=== PATIENT | male | born 1950 | race Caucasian/White ===

== ENCOUNTER 2016-09-27 10:06 | Emergency (ER) | payer MEDICARE, MEDICAID ==
[~2016-09-27] VITALS: Ht 190.5 cm; Wt 105.0 kg
[~2016-09-27 10:06] MED LIST: AMLO5TAB22 PO; LISI-363 PO; OXYC5 PO; TAMS0.4C67 PO
[2016-09-27 10:07] VITALS: BP 157/80; PULSE 70; RESP 16; TEMP 98.2; O2SAT 93
--- NOTE | 2016-09-27 10:53 | RADRPT ---
EXAM DATE/TIME: 09/27/2016 10:14 [facility] COMPARISON: CHEST SINGLE AP, February 16, 2016, 20:07. INDICATIONS : Chest pains for one day. MEDICAL HISTORY : Cirrhosis. SURGICAL HISTORY : Fusion, lumbar. ENCOUNTER: Initial ACUITY: 1 day PAIN SCORE: 7/10 LOCATION: Right lower side. FINDINGS: A single view of the chest demonstrates the lungs to be symmetrically aerated without evidence of mas s, infiltrate or effusion. The cardiomediastinal contours are unremarkable. Osseous structures are intact. CONCLUSION: No acute disease. Jeyson Mari MD FACR on September 27, 2016 at 10:51 Board Certified Radiologist. This report was verified electronically.
[2016-09-27 10:57] LABS: AUTOMATED NEUTROPHIL # 4.9 TH/MM3 (1.8-7.7); BASOPHIL % 0.6 % (0.0-2.0); EOSINOPHIL # 0.5 TH/MM3 (0-0.4); EOSINOPHIL % 7.2 % (0.0-4.0); HEMATOCRIT 43.8 % (39.0-51.0); LYMPH % 19.8 % (9.0-44.0); LYMPHOCYTE # 1.5 TH/MM3 (1.0-4.8); MEAN CELL VOLUME 96.4 FL (80.0-100.0); MEAN CORPUSCULAR HEMOGLOBIN 33.9 PG (27.0-34.0); MEAN CORPUSCULAR HGB CONC 35.2 % (32.0-36.0); MONO % 7.7 % (0.0-8.0); NEUT % 64.7 % (16.0-70.0); PLATELET COUNT 88 TH/MM3 (150-450); RED BLOOD COUNT 4.55 MIL/MM3 (4.50-5.90); RED CELL DISTRIBUTION WIDTH 13.5 % (11.6-17.2); WHITE BLOOD COUNT 7.6 TH/MM3 (4.0-11.0)
[2016-09-27 11:08] LABS: HEMO FLAGS AUTO DIFF
[2016-09-27 11:47] LABS: BLOOD UREA NITROGEN 12 MG/DL (7-18); GLOMERULAR FILTRATION RATE 113 ML/MIN (>89)
[2016-09-27 11:48] LABS: ALKALINE PHOSPHATASE 88 U/L (45-117); ALT (GPT) 24 U/L (12-78); AST (GOT) 26 U/L (15-37); TOTAL BILIRUBIN ADULT 2.9 MG/DL (0.2-1.0)
[2016-09-27 11:49] LABS: ANION GAP 7 MEQ/L (5-15); BICARBONATE 25.7 MEQ/L (21.0-32.0); CHLORIDE 104 MEQ/L (98-107); POTASSIUM 3.9 MEQ/L (3.5-5.1); SODIUM (NA) 137 MEQ/L (136-145)
[2016-09-27 11:54] LABS: CREATINE KINASE 69 U/L (39-308)
[2016-09-27 12:03] LABS: PLATELET ESTIMATE SMEAR LOW (NORMAL); PLATELET MORPHOLOGY NORMAL (NORMAL); SCAN/DIFF AUTO DIFF CONFIRMED
[2016-09-27] MEDS ORDERED: AMLO5TAB2 PO (12:35)
[2016-09-27] MEDS ORDERED: TAMS0.4C4 PO (12:35)
[2016-09-27] MEDS ORDERED: LISI40TA PO (12:35)
[2016-09-27] MEDS ORDERED: FURO1TAB60 PO (12:35)
[2016-09-27] MEDS ORDERED: SPIR50TA PO (12:35)
[2016-09-27] MEDS ORDERED: KLON2TAB PO (12:36)
[2016-09-27 12:38] VITALS: BP 181/85; PULSE 76; RESP 18; O2SAT 94
--- NOTE | 2016-09-27 12:44 | PD ---
HPI Chief Complaint: Fall Time Seen by Provider: 12:38 Travel History International Travel<30 days: No Contact w/Intl Traveler<30days: No Traveled to known affect area: No History of Present Illness HPI Patient comes in complaining of right-sided rib and abdominal pain status post mechanical fall 3 days ago. Patient was trying to catch his as she was about to fall causing him to fall hitting his right side on the coffee table. Denies hitting his head or loss of consciousness. Patient reports that she wanted to have him checked out previously, but the patient was refusing however his pain has become progressively worse. Patient's been taking an old prescription morphine for the pain last dose approximately 2 days ago. Patient states he does not have a allergy to morphine. Patient describes pain as a just hurts and is worse with certain movement and deep inspiration. Denies any chest pain, shortness of breath, nausea, vomiting, diarrhea, dark stool, loss or change in bowel or bladder, numbness or tingling anywhere, hitting his head, loss of consciousness, or being on any blood thinners. PFSH Past Medical History Arthritis: Yes Asthma: No Autoimmune Disease: No Blood Disorders: No Anxiety: Yes Depression: Yes Heart Rhythm Problems: No Cancer: No Cardiac Catheterization: No Cardiovascular Problems: No High Cholesterol: No Chemotherapy: No Chest Pain: No Congestive Heart Failure: No Cirrhosis: Yes COPD: No Cerebrovascular Accident: No Diabetes: No Diminished Hearing: No Endocrine: No Gastrointestinal Disorders: Yes (acid reflux) GERD: Yes Genitourinary: No Headaches: Yes Hiatal Hernia: No Hypertension: Yes Immune Disorder: No Kidney Stones: Yes Musculoskeletal: No Neurologic: Yes (seizure 1 time) Psychiatric: No Reproductive: No Respiratory: No Migraines: No Pancreatitis: Yes Radiation Therapy: No Renal Failure: Yes Seizures: Yes (ONCE WHEN WITHDRAWING FROM MORPHINE) Sleep Apnea: No Thyroid Disease: No Ulcer: Yes Past Surgical History Abdominal Surgery: Yes (APPENDECTOMY) Appendectomy: Yes Coronary Artery Bypass Graft: No Other Surgery: Yes (L4-5 FUSION) Social History Alcohol Use: Yes (3 shots Hand a day) Tobacco Use: No Substance Use: No Allergies-Medications (Allergen,Severity, Reaction): Coded Allergies: Ultram (Verified Allergy, Severe, Seizures, 09/27/16) Methadone (Verified Adverse Reaction, Mild, SOB, 09/27/16) Morphine (Verified Adverse Reaction, Mild, Itching, 09/27/16) *MDRO Multi-Drug Resistant Organism (Unverified Adverse Reaction, Unknown , 09/27/16) MRSA (buttock wound) - 08/2014 MRSA PCR Screen POSITIVE - 02/18/2016 Reported Meds & Prescriptions Reported Meds & Active Scripts Active Oxycodone (Oxycodone HCl) 5 Mg Tab 5 Mg PO Q8H PRN Reported Klonopin (Clonazepam) 2 Mg Tab 2 Mg PO TID Spironolactone 50 Mg Tab Unknown Dose PO DAILY Tamsulosin (Tamsulosin HCl) 0.4 Mg Cap 0.4 Mg PO HS Amlodipine (Amlodipine Besylate) 5 Mg Tab 5 Mg PO DAILY Lisinopril 40 Mg Tab 40 Mg PO DAILY Lasix (Furosemide) 40 Mg Tab 40 Mg PO DAILY Review of Systems Except as stated in HPI: all other systems reviewed are Neg Physical Exam Narrative GENERAL: Well-developed, overly nourished, in no acute distress, and non-ill appearing. SKIN: Warm and dry. Ecchymosis noted right CVA and left lower quadrant abdomen HEAD: Atraumatic. Normocephalic. EYES: Pupils equal and round. EOMI. No scleral icterus. No injection or drainage. ENT: No nasal bleeding or discharge. Mucous membranes pink and moist. NECK: Trachea midline. Supple. No nuclear rigidity. CARDIOVASCULAR: Regular rate and rhythm. No murmur appreciated. RESPIRATORY: No accessory muscle use. No respiratory distress. Clear to auscultation. Breath sounds equal bilaterally. There is ecchymosis noted right CVA. There is no crepitus or step-off noted. GASTROINTESTINAL: Abdomen soft, tenderness right upper and lower quadrant, Nondistended. Hepatic and splenic margins not palpable. Normal bowel sounds 4. No pulsatile mass. MUSCULOSKELETAL: No obvious deformities. No clubbing. No cyanosis. No edema. Full range of motion. NEUROLOGICAL: Awake and alert. No obvious cranial nerve deficits. Motor grossly within normal limits. Normal speech. PSYCHIATRIC: Appropriate mood and affect; insight and judgment normal. Data Data Last Documented VS Vital Signs Date Time Temp Pulse Resp B/P Pulse Ox O2 Delivery O2 Flow Rate FiO2 09/27/16 14:00 67 18 153/95 94 Room Air 09/27/16 12:41 2 09/27/16 10:07 98.2 Orders Electrocardiogram (09/27/16 10:12) Complete Blood Count With Diff (09/27/16 10:12) Ckmb (Isoenzyme) Profile (09/27/16 10:12) Troponin I (09/27/16 10:12) Chest, Single Ap (09/27/16 10:12) Iv Access Insert/Monitor (09/27/16 10:12) Ecg Monitoring (09/27/16 10:12) Oxygen Administration (09/27/16 10:12) Oximetry (09/27/16 10:12) Comprehensive Metabolic Panel (09/27/16 10:12) Ct Abd/Pel W Iv Contrast(Rout) (09/27/16 12:33) Ondansetron Inj (Zofran Inj) (09/27/16 12:45) Sodium Chloride 0.9% Flush (Ns Flush) (09/27/16 12:45) Prothrombin Time / Inr (Pt) (09/27/16 12:33) Act Partial Throm Time (Ptt) (09/27/16 12:33) Ribs, Uni (W/O Exp Cxr) (09/27/16 ) Morphine Inj (Morphine Inj) (09/27/16 12:45) Iohexol 350 Inj (Omnipaque 350 Inj) (09/27/16 14:02) Resp Incentive Spirometry (09/27/16 ) Labs Laboratory Tests Test 09/27/16 10:40 White Blood Count 7.6 TH/MM3 Red Blood Count 4.55 MIL/MM3 Hemoglobin 15.4 GM/DL Hematocrit 43.8 % Mean Corpuscular Volume 96.4 FL Mean Corpuscular Hemoglobin 33.9 PG Mean Corpuscular Hemoglobin 35.2 % Concent Red Cell Distribution Width 13.5 % Platelet Count 88 TH/MM3 Mean Platelet Volume 9.5 FL Neutrophils (%) (Auto) 64.7 % Lymphocytes (%) (Auto) 19.8 % Monocytes (%) (Auto) 7.7 % Eosinophils (%) (Auto) 7.2 % Basophils (%) (Auto) 0.6 % Neutrophils # (Auto) 4.9 TH/MM3 Lymphocytes # (Auto) 1.5 TH/MM3 Monocytes # (Auto) 0.6 TH/MM3 Eosinophils # (Auto) 0.5 TH/MM3 Basophils # (Auto) 0.0 TH/MM3 CBC Comment AUTO DIFF Differential Comment AUTO DIFF CONFIRMED Platelet Estimate LOW Platelet Morphology Comment NORMAL Sodium Level 137 MEQ/L Potassium Level 3.9 MEQ/L Chloride Level 104 MEQ/L Carbon Dioxide Level 25.7 MEQ/L Anion Gap 7 MEQ/L Blood Urea Nitrogen 12 MG/DL Creatinine 0.70 MG/DL Estimat Glomerular Filtration 113 ML/MIN Rate Random Glucose 103 MG/DL Calcium Level 8.9 MG/DL Total Bilirubin 2.9 MG/DL Aspartate Amino Transf 26 U/L (AST/SGOT) Alanine Aminotransferase 24 U/L (ALT/SGPT) Alkaline Phosphatase 88 U/L Total Creatine Kinase 69 U/L Troponin I LESS THAN 0.02 NG/ML Total Protein 7.1 GM/DL Albumin 3.1 GM/DL MDM Medical Decision Making Medical Screen Exam Complete: Yes Emergency Medical Condition: Yes Interpretation(s) EKG reviewed by Dr. Riddle, shows sinus rhythm with ventricular rate 74. No STEMI. Differential Diagnosis Fracture, contusion, liver laceration, splenic laceration, appendicitis, other Narrative Course The patient suffered a minor chest wall contusion. There is no clinical evidence to suggest intrathoracic injury nor cardiac injury at this time. The patient has no significant pain, shortness of breath or dyspnea. The patient moves air well without difficulty and is clear to auscultation. Heart sounds are audible without rubs, murmurs or gallops. There is no palpable crepitus. Pulses are symmetrical and strong. Chest/Rib Xray was normal without evidence of fracture, pneumothorax or hemothorax. The mediastinum appeared within normal limits. EKG and subsequent monitoring revealed no ectopy, st/t abnormalities, arrhythmias or abnormal intervals. Diagnosis was discussed with the patient. The patient is to return if develops any worsening pain difficulty breathing, or if coughs up blood or develops fever. The patient appears to have an abdominal wall contusion. There is no evidence to suggest intraabdominal injury nor visceral injury. CT examination with IV contrast showed no injury.There is no evidence of injury to the liver,spleen, intestinal injury, or genitourinary/renal/ retroperitoneal injury. There is also no evidence of underlying pelvic injury. Diagnosis was discussed with the patient who agreed with plan. The patient was given warnings to return if pain worsened or changed or developed any vomiting, blood in urine or progressive back pain. The patient was instructed to follow up with their primary physician. Patient in no obvious distress upon re-evaluation. All pertinent laboratory/ Radiology result(s) discussed with patient/family. Patient was asked if they wanted to speak to my attending, which the patient did not wish to do at this time. Discussed patient with Dr. Riddle, who is in agreement with plan of care and disposition. Any questions/concerns in reference to patient diagnosis/ condition discussed and clarified prior to patient's discharge. Reinforced sheer importance of close follow up with patient's primary physician or primary care clinic. Instructed patient to return to ED immediately, if symptoms return/ worsen. Pt showed understanding of above instructions. Further instructions and recommendations were detailed in discharge paperwork. Pt ambulated without difficulty out of ED at discharge. Diagnosis Primary Impression: Contusion of rib on right side Qualified Code: S20.211A - Contusion of rib on right side, initial encounter Additional Impression: Abdominal contusion Patient Instructions: Contusion in Adults (ED), General Instructions, Rib Contusion (ED) Additional Instructions: Follow-up with your primary care physician this week for reevaluation. Take all medication as prescribed. Use incentive spirometer 10 times per hour as directed. Return to the emergency department if symptoms get worse. Med/Other Pt SpecificInfo: Prescription(s) given Scripts Oxycodone 5 Mg Tab5 Mg PO Q8H PRN (PAIN) #7 TAB Ref 0 Prov:Merna Riddle MD 09/27/16 Disposition: 01 DISCHARGE HOME Condition: Stable Negro Roman Sep 27, 2016 12:44
[2016-09-27] MEDS ORDERED: MORPHINE SULFATE 4 MG/ML INJ IV PUSH ONE (12:45)
[2016-09-27] MEDS ORDERED: SODIUM CHLORIDE 0.9% FLUSH 5 ML FLUSH IVF PRN (12:45)
[2016-09-27] MEDS ORDERED: ONDANSETRON HCL 4 MG/2 ML VIAL IVP ONE (12:45)
--- NOTE | 2016-09-27 13:59 | RADRPT ---
EXAM DATE/TIME: 09/27/2016 13:28 [facility] COMPARISON: No previous studies available for comparison. INDICATIONS : Right side rib pain from fall. MEDICAL HISTORY : None. SURGICAL HISTORY : None. ENCOUNTER: Initial ACUITY: 1 day PAIN SCORE: 8/10 LOCATION: Right lower ribs FINDINGS: This expiratory chest reveals no evidence for pneumothorax. There is good visualization of the right ribs. There is no evidence for a rib fracture. CONCLUSION: Negative for rib fracture or pneumothorax. Jeyson Mari MD FACR on September 27, 2016 at 13:53 Board Certified Radiologist. This report was verified electronically.
[2016-09-27 14:00] VITALS: BP 153/95; PULSE 67; RESP 18; O2SAT 94
[2016-09-27] MEDS ORDERED: IOHEXOL 350 MG/ML 50 ML BTL (for RAD DIAG) IV ONE (14:02)
--- NOTE | 2016-09-27 14:39 | RADRPT ---
EXAM DATE/TIME: 09/27/2016 13:56 [facility] COMPARISON: CT ABDOMEN & PELVIS W CONTRAST, November 24, 2014, 6:31. INDICATIONS : Fall three days ago, right side chest and abdominal pain. IV CONTRAST: 91 cc Omnipaque 350 (iohexol) IV ORAL CONTRAST: No oral contrast ingested. RADIATION DOSE: 16.49 CTDIvol (mGy) MEDICAL HISTORY : Hypertension. Pancreatitis. Cirrhosis. Renal disease SURGICAL HISTORY : Appendectomy. ENCOUNTER: Initial ACUITY: 3 days PAIN SCALE: 5/10 LOCATION: Right abdominal pain TECHNIQUE: Volumetric scanning of the abdomen and pelvis was performed. Using automated exposure control and ad justment of the mA and/or kV according to patient size, radiation dose was kept as low as reasonably achievable to obtain optimal diagnostic quality images. FINDINGS: Lung bases are clear. The liver is somewhat small. Spleen is prominent. Pancreas, adrenals and kidn eys are unremarkable. There is symmetrical renal function. Review of bone windows reveals no evidence for a rib fracture, pneumothorax or hematoma. Pelvic contents are remarkable only for mild diverticula disease. CONCLUSION: 1. Negative for an acute traumatic injury. 2. Somewhat small nodular liver with a prominent spleen suggesting hepatocellular disease. Jeyson Mari MD FACR on September 27, 2016 at 14:17 Board Certified Radiologist. This report was verified electronically.
[2016-09-27] MEDS ORDERED: PERC5TAB12 PO (15:01)
[2016-09-27] MEDS ORDERED: OXYC-392 PO (15:03)
[2016-09-27 15:52] VITALS: RESP 18
--- NOTE | 2016-09-27 16:57 | EKG ---
Date Performed: 09/27/2016 Time Performed: 10:30:21 PTAGE: 66 years EKG: Sinus rhythm WITH OCCASIONAL VENTRICULAR PREMATURE COMPLEXES BORDERLINE ECG COMPARED TO PRIOR ELECTROCARDIOGRAM, PVCs are present. PREVIOUS TRACING : 02/16/2016 19.38 DOCTOR: Tato Kate Interpretating Date/Time 09/27/2016 16:55:31
== END 2016-09-27 22:35 | disposition home or self-care (01) ==
LOC: NEPC 10:06
DX: S30.1XXA Contusion of abdominal wall, initial encounter (principal); I10 Essential (primary) hypertension; K74.60 Unspecified cirrhosis of liver; S20.211A Contusion of right front wall of thorax, initial encounter; W18.09XA Striking against other object with subsequent fall, initial encounter; Y92.009 Unspecified place in unspecified non-institutional (private) residence as the place of occurrence of the external cause; Z88.5 Allergy status to narcotic agent
CPT/HCPCS: 71010; 71100; 74177; 80053; 82550; 84484; 85025; 93005; 96374; 96375; 99284; J2270; J2405; Q9967; 85610; 85730

== ENCOUNTER 2016-11-12 15:05 | Emergency (ER) | payer MEDICARE, MEDICAID ==
[~2016-11-12 15:05] MED LIST changes: +AMLO5TAB2 PO; -AMLO5TAB22 PO; +FURO1TAB60 PO; +KLON2TAB PO; -LISI-363 PO; +LISI40TA PO; +OXYC-392 PO; -OXYC5 PO; +SPIR50TA PO; +TAMS0.4C4 PO; -TAMS0.4C67 PO
[2016-11-12 15:08] VITALS: BP 144/93; PULSE 89; TEMP 97.9; O2SAT 94
== END 2016-11-12 16:00 | disposition left against medical advice (07) ==
LOC: NED 15:05
DX: R41.0 Disorientation, unspecified (principal); R55 Syncope and collapse; Z53.21 Procedure and treatment not carried out due to patient leaving prior to being seen by health care provider
CPT/HCPCS: 99281

== ENCOUNTER 2017-04-17 23:51 | Observation (INO) | payer MEDICARE, MEDICAID ==
[~2017-04-17] VITALS: Ht 190.5 cm; Wt 82.0 kg
[2017-04-17] MEDS ORDERED: IOHEXOL 350 MG/ML 10 ML VIAL (for RAD DIAG) IVCONTRAST ONE (23:52)
[2017-04-17 23:56] VITALS: BP 137/104; PULSE 125; RESP 22; TEMP 97.9; O2SAT 98
[2017-04-18] VITALS (13 sets, daily range): BP systolic 98–164; BP diastolic 57–90; PULSE 49–94; RESP 16–20; TEMP 98–98.7; O2SAT 93–99
[2017-04-18] MEDS ORDERED: NEUR300C PO (00:31)
[2017-04-18] MEDS ORDERED: ONDANSETRON HCL 4 MG/2 ML VIAL IV PUSH ONE (01:00)
[2017-04-18] MEDS ORDERED: LORazepam 2 MG/ML VIAL IV PUSH ONE (01:00)
[2017-04-18] MEDS ORDERED: ONDANSETRON HCL 4 MG/2 ML VIAL IVP ONE (01:00)
[2017-04-18] MEDS ORDERED: SODIUM CHLORIDE 0.9% FLUSH 10 ML FLUSH IV FLUSH PRN ×3 (01:00→04:00)
[2017-04-18] MEDS ORDERED: ASPIRIN 325 MG TAB PO ONE (01:00)
[2017-04-18 01:06] LABS: AUTOMATED NEUTROPHIL # 5.1 TH/MM3 (1.8-7.7); BASOPHIL % 0.4 % (0.0-2.0); EOSINOPHIL # 0.2 TH/MM3 (0-0.4); EOSINOPHIL % 2.5 % (0.0-4.0); HEMATOCRIT 48.2 % (39.0-51.0); HEMO FLAGS DIFF FINAL; LYMPH % 30.1 % (9.0-44.0); LYMPHOCYTE # 2.7 TH/MM3 (1.0-4.8); MEAN CELL VOLUME 96.7 FL (80.0-100.0); MEAN CORPUSCULAR HEMOGLOBIN 33.5 PG (27.0-34.0); MEAN CORPUSCULAR HGB CONC 34.6 % (32.0-36.0); MONO % 9.6 % (0.0-8.0); NEUT % 57.4 % (16.0-70.0); PLATELET COUNT 104 TH/MM3 (150-450); RED BLOOD COUNT 4.99 MIL/MM3 (4.50-5.90); WHITE BLOOD COUNT 8.9 TH/MM3 (4.0-11.0)
[2017-04-18 01:16] LABS: APTT (PATIENT) 28.9 SEC (24.3-30.1); INTERNATIONAL NORMALIZED RATIO 1.2 RATIO; PROTHROMBIN TIME - PATIENT 13.1 SEC (9.8-11.6)
[2017-04-18 01:25] LABS: ALKALINE PHOSPHATASE 112 U/L (45-117); TOTAL BILIRUBIN ADULT 5.4 MG/DL (0.2-1.0)
--- NOTE | 2017-04-18 01:28 | RADRPT ---
EXAM DATE/TIME: 04/18/2017 01:05 [facility] COMPARISON: CHEST SINGLE AP, September 27, 2016, 10:14. INDICATIONS : Chest pain. MEDICAL HISTORY : Hypertension. SURGICAL HISTORY : None. ENCOUNTER: Initial ACUITY: 1 day PAIN SCORE: 4/10 LOCATION: Left chest FINDINGS: Portable AP view of the chest demonstrates a normal-sized cardiac silhouette. No effusion, consolidat ion, or pneumothorax is visualized. The bones and soft tissues demonstrate no acute abnormality. CONCLUSION: No acute cardiopulmonary abnormalities identified. Jose Blue MD on April 18, 2017 at 1:26 Board Certified Radiologist. This report was verified electronically.
[2017-04-18 01:31] LABS: ALT (GPT) 61 U/L (12-78); ANION GAP 11 MEQ/L (5-15); AST (GOT) 66 U/L (15-37); BICARBONATE 23.1 MEQ/L (21.0-32.0); BLOOD UREA NITROGEN 8 MG/DL (7-18); CHLORIDE 104 MEQ/L (98-107); GLOMERULAR FILTRATION RATE 77 ML/MIN (>89); POTASSIUM 3.3 MEQ/L (3.5-5.1); SODIUM (NA) 138 MEQ/L (136-145)
--- NOTE | 2017-04-18 01:31 | RADRPT ---
EXAM DATE/TIME: 04/18/2017 01:09 [facility] COMPARISON: No previous studies available for comparison. INDICATIONS : Left shoulder pain. MEDICAL HISTORY : None. SURGICAL HISTORY : None. ENCOUNTER: Initial ACUITY: 1 day PAIN SCORE: 4/10 LOCATION: Left shoulder. FINDINGS: 2 views of the left shoulder demonstrate no fracture or dislocation. The acromioclavicular joint is i ntact with moderate osteoarthritis. There is mineralization along the coracoclavicular ligaments. No soft tissue abnormality is identified. The visualized portions of the left lung are clear and no displaced rib fracture is seen. CONCLUSION: No acute left shoulder abnormality is identified on this two-view examination. There is osteoarthriti s at the acromioclavicular joint. Jose Blue MD on April 18, 2017 at 1:29 Board Certified Radiologist. This report was verified electronically.
--- NOTE | 2017-04-18 01:40 | PD ---
HPI Chief Complaint: Chest Pain Time Seen by Provider: 00:40 Travel History International Travel<30 days: No Contact w/Intl Traveler<30days: No Traveled to known affect area: No History of Present Illness HPI 66yo M with PMH of severe anxiety, depression, GERD, HTN, chronic back pain, hemochromatosis, cirrhosis presents to the ED with multiple complaints today. Pt is complaining of lower chest pain that radiates from left to right. Chest pain is dull and intermittent. Associated with sob, nausea, diaphoresis. Pt also with abdominal pain for 4 days. It is generalized abdominal pain and constant and burning. Denies any fever, cough, vomiting, dysuria, hematuria, focal weakness or numbness. Pt has never had a heart attack. PFSH Past Medical History Arthritis: Yes Asthma: No Autoimmune Disease: No Blood Disorders: No Anxiety: Yes Depression: Yes Heart Rhythm Problems: No Cancer: No Cardiac Catheterization: No Cardiovascular Problems: No High Cholesterol: No Chemotherapy: No Chest Pain: No Congestive Heart Failure: No Cirrhosis: Yes COPD: No Cerebrovascular Accident: No Diabetes: No Diminished Hearing: Yes (grindstone) Endocrine: No Gastrointestinal Disorders: Yes (acid reflux) GERD: Yes Genitourinary: No Headaches: Yes Hiatal Hernia: No Hypertension: Yes Immune Disorder: No Implanted Vascular Access Dvce: No Kidney Stones: Yes Musculoskeletal: No Neurologic: Yes (seizure 1 time) Psychiatric: No Reproductive: No Respiratory: No Migraines: No Pancreatitis: Yes Radiation Therapy: No Renal Failure: Yes Seizures: Yes (ONCE WHEN WITHDRAWING FROM MORPHINE) Sleep Apnea: Yes (hx of) Thyroid Disease: No Ulcer: Yes Tetanus Vaccination: > 5 Years Influenza Vaccination: Yes Past Surgical History Abdominal Surgery: Yes (APPENDECTOMY) Appendectomy: Yes Coronary Artery Bypass Graft: No Other Surgery: Yes (L4-5 FUSION) Social History Alcohol Use: No Tobacco Use: No Substance Use: No Allergies-Medications (Allergen,Severity, Reaction): Coded Allergies: tramadol (Unverified Allergy, Severe, Seizures, 04/18/17) methadone (Unverified Adverse Reaction, Mild, SOB, 04/18/17) morphine (Unverified Adverse Reaction, Mild, Itching, 04/18/17) *MDRO Multi-Drug Resistant Organism (Unverified Adverse Reaction, Unknown , 04/18/17) MRSA (buttock wound) - 08/2014 MRSA PCR Screen POSITIVE - 02/18/2016 Reported Meds & Prescriptions Reported Meds & Active Scripts Active Oxycodone (Oxycodone HCl) 5 Mg Tab 5 Mg PO Q8H PRN Reported Neurontin (Gabapentin) 300 Mg Cap 300 Mg PO BID Klonopin (Clonazepam) 2 Mg Tab 2 Mg PO TID Spironolactone 50 Mg Tab Unknown Dose PO DAILY Tamsulosin (Tamsulosin HCl) 0.4 Mg Cap 0.4 Mg PO HS Amlodipine (Amlodipine Besylate) 5 Mg Tab 5 Mg PO DAILY Lisinopril 40 Mg Tab 40 Mg PO DAILY Lasix (Furosemide) 40 Mg Tab 40 Mg PO DAILY Review of Systems Except as stated in HPI: all other systems reviewed are Neg Physical Exam Narrative GENERAL: 66yo M in mild distress. SKIN: Focused skin assessment warm/dry. HEAD: Atraumatic. Normocephalic. EYES: Pupils equal and round. No scleral icterus. No injection or drainage. ENT: No nasal bleeding or discharge. Mucous membranes pink and moist. NECK: Trachea midline. No JVD. CARDIOVASCULAR: Regular rate and rhythm. No murmur appreciated. RESPIRATORY: No accessory muscle use. Clear to auscultation. Breath sounds equal bilaterally. GASTROINTESTINAL: Abdomen soft, +TTP epigastric, RUQ, RLQ. No rebound tenderness or guarding. MUSCULOSKELETAL: No obvious deformities. No clubbing. No cyanosis. No edema. NEUROLOGICAL: Awake and alert. No obvious cranial nerve deficits. Motor grossly within normal limits. Normal speech. PSYCHIATRIC: Very anxious appearing. Data Data Last Documented VS Vital Signs Date Time Temp Pulse Resp B/P (MAP) Pulse Ox O2 Delivery O2 Flow Rate FiO2 04/18/17 00:33 94 20 134/79 (97) 99 Room Air 04/17/17 23:56 97.9 Orders Orders Complete Blood Count With Diff (04/18/17 00:50) Comprehensive Metabolic Panel (04/18/17 00:50) Lipase (04/18/17 00:50) Prothrombin Time / Inr (Pt) (04/18/17 00:50) Act Partial Throm Time (Ptt) (04/18/17 00:50) Urinalysis - C+S If Indicated (04/18/17 00:50) Ct Abd/Pel W Iv Contrast(Rout) (04/18/17 00:50) Iv Access Insert/Monitor (04/18/17 00:50) Ecg Monitoring (04/18/17 00:50) Oximetry (04/18/17 00:50) Ondansetron Inj (Zofran Inj) (04/18/17 01:00) Sodium Chloride 0.9% Flush (Ns Flush) (04/18/17 01:00) Ondansetron Inj (Zofran Inj) (04/18/17 01:00) Troponin I (04/18/17 00:50) Chest, Single Ap (04/18/17 ) Shoulder, Limited(2vws) (04/18/17 ) Aspirin (Aspirin) (04/18/17 01:00) Lorazepam Inj (Ativan Inj) (04/18/17 01:00) Iohexol 350 Inj (Omnipaque 350 Inj) (04/17/17 23:52) Morphine Inj (Morphine Inj) (04/18/17 03:00) Admit Order (Ed Use Only) (04/18/17 02:58) Labs Laboratory Tests Test 04/18/17 00:55 White Blood Count 8.9 TH/MM3 Red Blood Count 4.99 MIL/MM3 Hemoglobin 16.7 GM/DL Hematocrit 48.2 % Mean Corpuscular Volume 96.7 FL Mean Corpuscular Hemoglobin 33.5 PG Mean Corpuscular Hemoglobin Concent 34.6 % Red Cell Distribution Width 13.0 % Platelet Count 104 TH/MM3 Mean Platelet Volume 9.5 FL Neutrophils (%) (Auto) 57.4 % Lymphocytes (%) (Auto) 30.1 % Monocytes (%) (Auto) 9.6 % Eosinophils (%) (Auto) 2.5 % Basophils (%) (Auto) 0.4 % Neutrophils # (Auto) 5.1 TH/MM3 Lymphocytes # (Auto) 2.7 TH/MM3 Monocytes # (Auto) 0.8 TH/MM3 Eosinophils # (Auto) 0.2 TH/MM3 Basophils # (Auto) 0.0 TH/MM3 CBC Comment DIFF FINAL Differential Comment Prothrombin Time 13.1 SEC Prothromb Time International Ratio 1.2 RATIO Activated Partial Thromboplast Time 28.9 SEC Blood Urea Nitrogen 8 MG/DL Creatinine 0.98 MG/DL Random Glucose 134 MG/DL Total Protein 7.5 GM/DL Albumin 3.7 GM/DL Calcium Level 9.0 MG/DL Alkaline Phosphatase 112 U/L Aspartate Amino Transf (AST/SGOT) 66 U/L Alanine Aminotransferase (ALT/SGPT) 61 U/L Total Bilirubin 5.4 MG/DL Sodium Level 138 MEQ/L Potassium Level 3.3 MEQ/L Chloride Level 104 MEQ/L Carbon Dioxide Level 23.1 MEQ/L Anion Gap 11 MEQ/L Estimat Glomerular Filtration Rate 77 ML/MIN Troponin I LESS THAN 0.02 NG/ML Lipase 112 U/L [facility] Medical Decision Making Medical Screen Exam Complete: Yes Emergency Medical Condition: Yes Interpretation(s) EKG: NSR 93bpm. Normal axis. Q waves III, V1, V2. Differential Diagnosis ACS vs. anxiety vs. pneumonia vs. colitis vs. pancreatitis Narrative Course 66yo M with PMH of HTN, hemochromatosis, cirrhosis here with multiple complaints. Pt has atypical chest pain that radiates from left to right chest. It is associated with nausea and diaphoresis. As per our record, last adenosine stress test was in 08/[address] segment changes. It has been a while since he had a stress test. Pt has history of anxiety and appeared anxious so ativan 1mg given as well as zofran. Labs reviewed, no leukocytosis. K: 3.3, replaced orally. CTa/p showed no acute abnormality within abdomen or pelvis. Cirrhosis which pt knows about. Total bilirubin is elevated at 5.4. AST is elevated at 66. Pt had been admitted for hyperbilirubinemia and transaminitis 02/16/16-02/18/16 and had EGD that showed small esophageal varices and gastritis. Colonoscopy that showed polyps. MRCP showed no obstruction but evidence of live cirrhosis. Pt was evaluated by GI Dr. Salcedo. Morphine ordered and pt is not allergic to morphine. States he puts that as his allergies because he was on pain management and was on too many pain medications. CXR negative. Xray left shoulder was ordered because he has been having left shoulder pain since falling 6 months ago. Xray left shoulder showed no acute shoulder abnormality. I initially placed admission for chest pain center but pt is still with abdominal pain and should be evaluated by GI given the elevated bilirubin so discussed with Dr. Tate and accepted to Dr. Napoles's service. Pt currently denies any chest pain but would r /o ACS with serial EKG and cardiac enzymes. Diagnosis Primary Impression: Hyperbilirubinemia Additional Impression: Abdominal pain Qualified Codes: R10.11 - Right upper quadrant pain Admitting Information Admitting Physician Requests: Yaneth Christianson DO Apr 18, 2017 01:40
--- NOTE | 2017-04-18 02:11 | RADRPT ---
EXAM DATE/TIME: 04/18/2017 01:58 [place] COMPARISON: CT ABDOMEN & PELVIS W CONTRAST, September 27, 2016, 13:56. INDICATIONS : Abdominal pain along with nausea. IV CONTRAST: 93 cc Omnipaque 350 (iohexol) IV ORAL CONTRAST: No oral contrast ingested. RADIATION DOSE: 15.63 CTDIvol (mGy) MEDICAL HISTORY : Seizures. Hypertension. Pancreatitis.renal disease SURGICAL HISTORY : Appendectomy. ENCOUNTER: Initial ACUITY: 4 - 6 days PAIN SCALE: 3/10 LOCATION: abdomen TECHNIQUE: Volumetric scanning of the abdomen and pelvis was performed. Using automated exposure control and ad justment of the mA and/or kV according to patient size, radiation dose was kept as low as reasonably achievable to obtain optimal diagnostic quality images. DICOM format image data is available electro nically for review and comparison. FINDINGS: There is respiratory motion artifact. LOWER LUNGS: The visualized lower lungs demonstrate no acute finding. Bilateral gynecomastia. LIVER: Liver has a nodular contour with central atrophy. No focal lesion is seen. There is no dilation of t he biliary tree. No calcified gallstones. SPLEEN: Mildly enlarged measuring 13.4 cm. PANCREAS: Within normal limits. KIDNEYS: Normal in size and shape. There is no mass hydronephrosis. 2 nonobstructing right renal stones are p resent measuring up to 4 mm. ADRENAL GLANDS: Within normal limits. VASCULAR: There is no aortic aneurysm. There is moderate atherosclerotic disease. There are paraesophageal vari melvin. BOWEL/MESENTERY: The stomach, small bowel, and colon demonstrate no acute abnormality. There is no free intraperitone al air or fluid. ABDOMINAL WALL: Within normal limits. RETROPERITONEUM: There is no lymphadenopathy. BLADDER: No wall thickening or mass. REPRODUCTIVE: Within normal limits. INGUINAL: There is no lymphadenopathy or hernia. MUSCULOSKELETAL: There are degenerative changes of the lumbar spine. CONCLUSION: 1. No acute abnormality is identified within the abdomen or pelvis. Examination quality degraded by r espiratory motion artifact. 2. Cirrhosis with findings indicative of portal hypertension including splenomegaly and paraesophagea l varices. The bilateral gynecomastia is also related to the chronic liver disease. 3. Nonacute findings include moderate atherosclerotic disease and 2 nonobstructing right renal stones . Jose Blue MD on April 18, 2017 at 2:05 Board Certified Radiologist. This report was verified electronically.
[2017-04-18] MEDS ORDERED: MORPHINE SULFATE 8 MG/ML INJ IV PUSH ONE (03:00)
[2017-04-18 03:59] LABS: BLOOD, URINE NEG (NEG); COMMENT (UR) CULT NOT INDICATED; CULTURE IF INDICATED CULT NOT INDICATED; GLUCOSE,URINE NEG (NEG); KETONE, URINE NEG (NEG); NITRITE,URINE NEG (NEG); URINE COLOR YELLOW (YELLW/STRAW)
[2017-04-18] MEDS ORDERED: BISACODYL 10 MG SUPP RECTAL PRN (04:00)
[2017-04-18] MEDS ORDERED: MAGNESIUM HYDROXIDE SUSP 30 ML CUP PO PRN ×2 (04:00)
[2017-04-18] MEDS ORDERED: LACTULOSE SYRUP 20 GM/30 ML CUP PO PRN (04:00)
[2017-04-18] MEDS ORDERED: SENNOSIDES 8.6 MG TAB PO PRN ×2 (04:00)
[2017-04-18] MEDS ORDERED: POTASSIUM CHLORIDE 20 MEQ CONTROLLED RELEASE TAB PO ONE (04:00)
[2017-04-18] MEDS ORDERED: NALOXONE HCL 0.4 MG/ML AMP IV PRN ×2 (04:00)
[2017-04-18] MEDS ORDERED: ONDANSETRON HCL 4 MG/2 ML VIAL IVP PRN (04:00)
[2017-04-18] MEDS ORDERED: PANTOPRAZOLE SOD 40 MG DELAYED RELEASE TAB PO SCH (05:00)
[2017-04-18] MEDS: clonazePAM 1 MG TAB PO PRN ×2 (06:01→15:41)
--- NOTE | 2017-04-18 06:24 | MH ---
cc: DARYN NAPOLES MD DATE OF ADMISSION: 04/18/2017 TIME OF VISIT: 03:45 CHIEF COMPLAINT Abdominal pain. HISTORY OF PRESENT ILLNESS This is a pleasant 66-year-old male who states he has been having abdominal pain for about four days, progressively worsening. It is mainly in the upper abdomen. He described it as a burning pain that has been on and off, however, over the past day or so it has become more constant, is very severe. He does have a little bit of chest discomfort as well which is a little different than the burning pain. It is in his lower chest, does not radiate, is described as a dull pain, lasts for 5-10 minutes and resolves on its own. He has had nausea and dry heaves, not actually vomiting. His appetite has been poor. He has not had fever or chills. He has had some loose stool; he took some Imodium and now his last bowel movement was very small amount yesterday. He has had very poor sleep because of the abdominal pain, not because of the chest pain. The pain was actually relieved a little bit by laying on his side and pushing a pillow to his abdomen. However, he has a bad back and he cannot stay in that position. His blood pressure was also noted to be very high, like 200/118 and his convinced him to come to the hospital and to have further workup because of this. MEDICATIONS ON ADMISSION Please see the chart. ALLERGIES The patient has had problems in the past with METHADONE. MORPHINE. TRAMADOL, being over-medicated. PAST MEDICAL HISTORY 1. Cirrhosis. 2. Gynecomastia. 3. Nonobstructing right renal stone. 4. GERD. 5. Hypertension. 6. Hemochromatosis. 7. One seizure while withdrawing from medication for narcotics. 8. Obstructive sleep apnea (not formally tested or being treated). 9. BPH. PAST SURGICAL HISTORY 1. Appendectomy. 2. L4-L5 fusion. 3. Bilateral upper extremity carpal tunnel surgery. SOCIAL HISTORY . Tobacco - none. Alcohol - none. FAMILY HISTORY Mother of lymphoma. She also had diabetes. Brother has diabetes. Son has hepatitis B and C. REVIEW OF SYSTEMS The patient has had some chronic issues with shortness of breath with exertion. They live on the third floor and sometimes with ambulating he get a little short of breath. He is trying to lose weight. He used to snore heavily but this seems to be better recently. He does not go for any kind of therapeutic phlebotomy at this time. He does not follow with a systems accountant. He has seen Dr. Leon's group and Dr. Oliva in the past because of the cirrhosis. He has had no recent sign of GI bleeding with black stool or blood in the vomit. The patient had an adenosine stress test done in 2013 which was reported to be normal but I am having trouble viewing it at this time. REVIEW OF SYSTEMS On 12-point, no other pertinent findings or specific changes over the last several months. He does have some chronic pain in his breasts with the gynecomastia; this has not changed recently. PHYSICAL EXAMINATION VITAL SIGNS: Last temperature was afebrile, heart rate 85, respirations 16, blood pressure 164/81. O2 sat was 99% on room air, now is reading 93%. GENERAL: This is a [id number] male resting comfortably in bed. His is at the bedside. He is in no respiratory distress at this time. HEENT: Sclerae with some jaundice. Mucous membranes are moist. NECK: Supple. CARDIOVASCULAR SYSTEM: Regular rate and rhythm. RESPIRATORY SYSTEM: Lungs are clear to auscultation bilaterally. CHEST: Bilateral gynecomastia is noted. GASTROINTESTINAL SYSTEM: Abdomen is obese. There is tenderness in the epigastric and the right upper quadrant. SYSTEM: No suprapubic tenderness. No CVA tenderness. MUSCULOSKELETAL SYSTEM: No edema. Florentino's is negative. Distal pulses are palpable. NEUROLOGICAL EXAMINATION: The patient is awake, alert and oriented. Speech is clear and fluent. Moving all of his extremities. INVESTIGATIONS Sodium 138, potassium 3.3, glucose 134, bilirubin 5.4, AST 66, ALT 61. Troponin I less than 0.02. Lipase is 112. INR is 1.2. White count is 8.9, hemoglobin 16.7, platelets 104. Urinalysis shows specific gravity of 1.038. Urobilinogen is at 8. Culture is not indicated. EKG Sinus rhythm with rate 93 beats/minute. T-waves in the inferior leads of indeterminate age. RADIOLOGY DATA Shoulder x-ray - No acute left shoulder abnormality. Chest x-ray negative. CT of the abdomen and pelvis shows no acute abnormality. Examination quality is degraded by respiratory motion. Cirrhosis with findings indicative of portal hypertension, splenomegaly and paraesophageal varices, bilateral gynecomastia, moderate atherosclerotic disease and two nonobstructing right renal stones. IMPRESSION 1. Abdominal pain. 2. Chest pain. 3. Cirrhosis. 4. Hemochromatosis. 5. Hypertension. 6. Hyperbilirubinemia. 7. Chronic back pain. 8. Acid reflux. DISCUSSION The patient is placed on observation to Dr. Napoles's service. The plan is to repeat serial cardiac enzymes x 3, repeat EKG. He has already received aspirin and we will attempt to rule him out for and acute myocardial infarction. His pain seems to be more related to his abdomen. We will start him on a proton pump inhibitor. We will consult his relief worker, monitor his labs. We will give him analgesics and antiemetics as needed. His potassium was noted to be slightly low; this will be replaced. Further recommendations will be made as his case progresses. Anticipated length of stay is less than 48 hours. Anticipated discharge is home. Dictated by: Ronal Milligan PA-C MD JOHN Reyes/MANDY /4:17 AM /5:57 AM
[2017-04-18] MEDS: MORPHINE SULFATE 8 MG/ML INJ IV PUSH PRN ×2 (07:00→17:59)
--- NOTE | 2017-04-18 07:56 | PD.CONS ---
HPI History of Present Illness This is a 66 year old male who came to the ER for evaluation of chest and abdominal pain. His symptoms about a week ago, but became more severe Sunday or Sunday. He is complaining of a constant burning pain that radiates to his RUQ and chest. He has tried TUMS, Zantac, Simethicone, Gingerale, honey, and green tea at home, but has not had any relief. He also has some associated dry heaving when he tries to eat, so he reports that he is only eating small amounts to try to get by. He does have heartburn and bloating. He has had a couple of loose stools, but denies any melena or hematochezia. He denies any weight loss (other than a few pounds intentionally). He denies any fever or chills. He has been taking 2 Advil a day for his abdominal pain, but states that he quit because he was afraid that it would aggravate his stomach even more. He does not drink any alcohol. He was diagnosed with liver cirrhosis in 2013. He also has a hemochromatosis, but states that he has never been on any treatment for this. He has a remote hx of PUD. He was evaluated about a year ago for similar symptoms and was evaluated with EGD (02/17/16)----> small esophageal varices in the middle third of the esophagus, there was erythematous gastritis in the gastric antrum; multiple biopsies were performed, normal duodenal mucosa in the bulb and second portion of the duodenum, retroflexion was performed and was normal. Pathology revealed reactive/chemical gastropathy in a background of mild chronic gastritis, negative for helicobacter pylori. He then had a colonoscopy (02/18/16) which revealed adenomatous polyps transverse/ sigmoid colon. (Jerri Arnold) PFSH Past Medical History Chronic back pain HTN GERD Arthritis Sciatica Anxiety/Depression Panic attacks Kidney stones Hx pancreatitis Sz secondary to withdrawal from Morphine PUD, remote hx Liver Cirrhosis Hemochromatosis Adenomatous polyps Gastritis Esophageal varices Past Surgical History Appendectomy L4-5 fusion Carpal tunnel release BUE Tumor removed from left middle finger (benign) EGD Colonoscopy (Jerri Arnold) Coded Allergies: tramadol (Unverified Allergy, Severe, Seizures, 04/18/17) methadone (Unverified Adverse Reaction, Mild, SOB, 04/18/17) morphine (Unverified Adverse Reaction, Mild, Itching, 04/18/17) Medications Allergies Coded Allergies Type Severity Reaction Last Updated Verified tramadol Allergy Severe Seizures 04/18/17 No methadone Adverse Reaction Mild SOB 04/18/17 No morphine Adverse Reaction Mild Itching 04/18/17 No *MDRO Multi-Drug Resistant Organism Adverse Reaction Unknown 04/18/17 No Active Scripts Medications Dose Route/Sig Max Daily Dose Days Date Category Neurontin (Gabapentin) 300 Mg Cap 300 Mg PO BID 04/18/17 Reported Oxycodone (Oxycodone HCl) 5 Mg Tab 5 Mg PO Q8H PRN 09/27/16 Rx Klonopin (Clonazepam) 2 Mg Tab 2 Mg PO TID 09/27/16 Reported Spironolactone 50 Mg Tab Unknown Dose PO DAILY 09/27/16 Reported Tamsulosin (Tamsulosin HCl) 0.4 Mg Cap 0.4 Mg PO HS 09/27/16 Reported Amlodipine (Amlodipine Besylate) 5 Mg Tab 5 Mg PO DAILY 09/27/16 Reported Lisinopril 40 Mg Tab 40 Mg PO DAILY 09/27/16 Reported Lasix (Furosemide) 40 Mg Tab 40 Mg PO DAILY 09/27/16 Reported Family History Mother from Lymphoma- had dm, enlarged heart Father at 52 from [place]. ? Tumor pressed against heart Social History No tobacco. No etoh No illicit drugs (Jerri Arnold) Review of Systems Constitutional: COMPLAINS OF: Change in appetite, DENIES: Fever, Weight loss, Chills Respiratory: DENIES: Cough, Shortness of breath Cardiovascular: COMPLAINS OF: Chest pain Gastrointestinal: COMPLAINS OF: Abdominal pain, Diarrhea, Nausea, Vomiting, Swelling of Abdomen, Heartburn, DENIES: Black stools, Bloody stools, Constipation, Hematemesis Integumentary: DENIES: Abnormal pigmentation Hematologic/lymphatic: DENIES: Bruising Neurologic: DENIES: Headache Psychiatric: DENIES: Confusion (Jerri Arnold) GI Exam Vitals I&O Vital Signs Date Time Temp Pulse Resp B/P (MAP) Pulse Ox O2 Delivery O2 Flow Rate FiO2 04/18/17 07:25 65 04/18/17 07:05 16 04/18/17 04:52 98.1 65 18 162/90 (114) 97 04/18/17 04:35 04/18/17 03:58 93 04/18/17 03:27 85 16 164/81 (108) 93 Room Air 04/18/17 00:33 94 20 134/79 (97) 99 Room Air 04/17/17 23:56 97.9 125 22 137/104 (115) 98 Room Air I/O 04/17/17 04/17/17 04/17/17 04/18/17 04/18/17 04/18/17 07:00 15:00 23:00 07:00 15:00 23:00 Intake Total 0 ml Balance 0 ml Intake Oral 0 ml IV Total 0 ml # Voids 0 Imaging Allergies Coded Allergies Type Severity Reaction Last Updated Verified tramadol Allergy Severe Seizures 04/18/17 No methadone Adverse Reaction Mild SOB 04/18/17 No morphine Adverse Reaction Mild Itching 04/18/17 No *MDRO Multi-Drug Resistant Organism Adverse Reaction Unknown 04/18/17 No Active Scripts Medications Dose Route/Sig Max Daily Dose Days Date Category Neurontin (Gabapentin) 300 Mg Cap 300 Mg PO BID 04/18/17 Reported Oxycodone (Oxycodone HCl) 5 Mg Tab 5 Mg PO Q8H PRN 09/27/16 Rx Klonopin (Clonazepam) 2 Mg Tab 2 Mg PO TID 09/27/16 Reported Spironolactone 50 Mg Tab Unknown Dose PO DAILY 09/27/16 Reported Tamsulosin (Tamsulosin HCl) 0.4 Mg Cap 0.4 Mg PO HS 09/27/16 Reported Amlodipine (Amlodipine Besylate) 5 Mg Tab 5 Mg PO DAILY 09/27/16 Reported Lisinopril 40 Mg Tab 40 Mg PO DAILY 09/27/16 Reported Lasix (Furosemide) 40 Mg Tab 40 Mg PO DAILY 09/27/16 Reported Laboratory Test 04/18/17 00:55 04/18/17 03:00 04/18/17 04:10 White Blood Count 8.9 TH/MM3 Red Blood Count 4.99 MIL/MM3 Hemoglobin 16.7 GM/DL Hematocrit 48.2 % Mean Corpuscular Volume 96.7 FL Mean Corpuscular Hemoglobin 33.5 PG Mean Corpuscular Hemoglobin Concent 34.6 % Red Cell Distribution Width 13.0 % Platelet Count 104 TH/MM3 Mean Platelet Volume 9.5 FL Neutrophils (%) (Auto) 57.4 % Lymphocytes (%) (Auto) 30.1 % Monocytes (%) (Auto) 9.6 % Eosinophils (%) (Auto) 2.5 % Basophils (%) (Auto) 0.4 % Neutrophils # (Auto) 5.1 TH/MM3 Lymphocytes # (Auto) 2.7 TH/MM3 Monocytes # (Auto) 0.8 TH/MM3 Eosinophils # (Auto) 0.2 TH/MM3 Basophils # (Auto) 0.0 TH/MM3 CBC Comment DIFF FINAL Differential Comment Prothrombin Time 13.1 SEC Prothromb Time International Ratio 1.2 RATIO Activated Partial Thromboplast Time 28.9 SEC Blood Urea Nitrogen 8 MG/DL Creatinine 0.98 MG/DL Random Glucose 134 MG/DL Total Protein 7.5 GM/DL Albumin 3.7 GM/DL Calcium Level 9.0 MG/DL Alkaline Phosphatase 112 U/L Aspartate Amino Transf (AST/SGOT) 66 U/L Alanine Aminotransferase (ALT/SGPT) 61 U/L Total Bilirubin 5.4 MG/DL Sodium Level 138 MEQ/L Potassium Level 3.3 MEQ/L Chloride Level 104 MEQ/L Carbon Dioxide Level 23.1 MEQ/L Anion Gap 11 MEQ/L Estimat Glomerular Filtration Rate 77 ML/MIN Troponin I LESS THAN 0.02 NG/ML LESS THAN 0.02 NG/ML Lipase 112 U/L Urine Color YELLOW Urine Turbidity CLEAR Urine pH 7.0 Urine Specific [place] 1.038 Urine Protein TRACE mg/dL Urine Glucose (UA) NEG mg/dL Urine Ketones NEG mg/dL Urine Occult Blood NEG Urine Nitrite NEG Urine Bilirubin NEG Urine Urobilinogen 8.0 MG/DL Urine Leukocyte Esterase NEG Urine RBC 1 /hpf Urine WBC 1 /hpf Microscopic Urinalysis Comment CULT NOT INDICATED Physical Examination HEENT: Normocephalic; atraumatic; no jaundice. CHEST: CTA CARDIAC: RRR ABDOMEN: Soft, nondistended, mild epigastric tenderness; no hepatosplenomegaly ; bowel sounds are present in all four quadrants. EXTREMITIES: No clubbing, cyanosis, or edema. SKIN: Ecchymotic areas COMPUTER APPLICATIONS INSTRUCTOR: No focal deficits; alert and oriented times three. (Jerri Arnold) Assessment and Plan Plan ASSESSMENT: - Abdominal pain, N/V. 4-5 day history of burning epigastric pain radiating to chest/RUQ with associated heartburn, bloating, dry heaving. Hospitalized for the same last year, S/P EGD (02/17/16)----> small esophageal varices in the middle third of the esophagus, there was erythematous gastritis in the gastric antrum; multiple biopsies were performed, normal duodenal mucosa in the bulb and second portion of the duodenum, retroflexion was performed and was normal. Pathology revealed reactive/chemical gastropathy in a background of mild chronic gastritis, negative for helicobacter pylori. He then had a colonoscopy (02/18/16) which revealed adenomatous polyps transverse/sigmoid colon. CT Scan abdomen and pelvis (04/18/17)----> No acute abnormality is identified within the abdomen or pelvis. Examination quality degraded by respiratory motion artifact. Cirrhosis with findings indicative of portal hypertension including splenomegaly and paraesophageal varices. The bilateral gynecomastia is also related to chronic liver disease. Nonacute findings include moderate atherosclerotic disease and 2 nonobstructing right renal stones. HH Stable. LFT elevated with T. Bili 3.7, AST 105, ALK 73, ALk Phosph 143. PPI. Will plan for EGD this afternoon if third set of troponin/EKG unremarkable. Change Protonix to 40mg iv bid, add carafate, add simethicone. Add lipase to today's labs. - Elevated LFTs with liver cirrhosis with hx of hemochromatosis. Dx 2013. Denies ever having treatment for hemochromatosis. CT as above. Does not drink ETOH. T. Bili 3.7, AST 105, ALT 73, ALk Phosph 143. - Esophageal varices. No active GI bleeding. - Hx hemochromatosis. Will get Iron studies. - Chest pain, seems to be more GI related- epigastric burning radiating to RUQ and chest- no sob/difficulty breathing. Trop negative x 2, due for 3rd set. Per attending. - GERD. PPI - HTN, Anxiety/Depression, Chronic back pain per attending. PLAN: - Plan for egd this afternoon if 3rd set of trop/EKG unremarkable - Obtain consents - NPO - Add lipase to today's labs - CBC, CMP in am - Iron studies - Change Protonix to Protonix 40mg IV BID - Add Carafate - Add Simethicone - Supportive care - Further recommendations to follow based on results of above - PT seen and examined by Dr. Oliva and myself and this note is written on his behalf (Jerri Arnold) Physician Comments Seen and examined,plan for EGD today after clearance from cardiac point of view , will follow up with you. (Marjorie Oliva MD) Jerri Arnold Apr 18, 2017 07:56 Marjorie Oliva MD Apr 18, 2017 09:10
[2017-04-18] MEDS: SODIUM CHLORIDE 0.9% FLUSH 10 ML FLUSH IV FLUSH SCH ×2 (08:58→21:50)
[2017-04-18] MEDS: HEPARIN SODIUM - SQ 10,000 UNITS/ML VIAL SQ SCH ×2 (08:59→21:47)
[2017-04-18] MEDS: ASPIRIN 325 MG TAB PO SCH (08:59)
[2017-04-18] MEDS ORDERED: SODIUM CHLORIDE 0.9% FLUSH 10 ML FLUSH IV FLUSH SCH (09:00)
[2017-04-18] MEDS: PANTOPRAZOLE SODIUM 40 MG VIAL IV PUSH SCH ×2 (09:15→21:47)
[2017-04-18 10:33] LABS: TRANSFERRIN IRON PROFILE 211 MG/DL (200-360)
[2017-04-18 10:35] LABS: FERRITIN 349 NG/ML (26-388)
[2017-04-18] MEDS: SUCRALFATE 1 GM/10 ML CUP PO SCH ×3 (11:00→21:47)
--- NOTE | 2017-04-18 11:55 | GIPROC ---
[facility] [address] [facility]. [facility], [id number] EGD PROCEDURE REPORT EXAM DATE: 04/18/2017 PATIENT NAME: Veto Sanon MR #: [id number] BIRTHDATE: 1950 ATTENDING: Marjorie Oliva MD ORDER #: [id number] INFORMATION SYSTEMS AUDITOR: Kaye Butcher and Aleyda Guillen STATUS: inpatient INDICATIONS: The patient is a 66 yr old male here for an EGD due to epigastric abdominal pain and abdominal pain in the right upper quadrant PROCEDURE PERFORMED: EGD w/ biopsy MEDICATIONS: None and Per Anesthesia. TOPICAL ANESTHETIC: none CONSENT: The patient understands the risks and benefits of the procedure and understands that these risks include, but are not limited to: sedation, allergic reaction, infection, perforation and/or bleeding. Alternative means of evaluation and treatment include, among others: physical exam, x-rays, and/or surgical intervention. The patient elects to proceed with this endoscopic procedure. medical equipment was checked for proper function. Hand hygiene and appropriate measures for infection prevention was taken. After the risks, benefits and alternatives of the procedure were thoroughly explained, Informed consent was verified, confirmed and timeout was successfully executed by the treatment team. The patient was anesthetized with topical anesthesia and the Pentax [id number] endoscope was introduced through the mouth and advanced to the second portion of the duodenum. Retroflexed views revealed an ulcer The gastroscope was then slowly withdrawn and removed. ESOPHAGUS: The esophagus was otherwise normal. STOMACH: Multiple small non-bleeding, round and clean-based ulcers were found in the entire examined stomach. Biopsies were taken at edge of the ulcers and at the center of the ulcers. DUODENUM: Multiple medium sized non-bleeding, shallow and clean-based ulcers were found in the 2nd part of the duodenum. Biopsies were taken at edge of the ulcers and at the center of the ulcers. ADVERSE EVENTS: There were no complications. IMPRESSIONS: 1. The esophagus was otherwise normal 2. Multiple small ulcers were found in the entire examined stomach; biopsies were taken 3. Multiple medium sized ulcers were found in the 2nd part of the duodenum; biopsies were taken 4. Retroflexed views revealed an ulcers RECOMMENDATIONS: 1. Continue PPI 2. Await biopsy results. Biopsy results will not be ready for 7-10 days. If you don't hear from us in two weeks, call our office for biopsy results. 3. Check Gastrin Level 4. Avoid NSAID's PATIENT CONDITION: stable DISPOSITION: Observation REPEAT EXAM: NONE Marjorie Oliva MD eSigned: Marjorie Oliva MD 04/18/2017 11:54 AM cc: PATIENT NAME: Veto Sanon MR#: [id number]
[2017-04-18] MEDS ORDERED: PROPOFOL 200 MG/20 ML AMP IV ONE (12:00)
[2017-04-18] MEDS: SIMETHICONE 125 MG CHEWABLE TAB PO SCH ×2 (14:09→21:47)
[2017-04-18] MEDS: MORPHINE SULFATE 4 MG/ML INJ IV PRN ×2 (14:10→21:48)
--- NOTE | 2017-04-18 17:26 | EKG ---
Date Performed: 04/18/2017 Time Performed: 07:10:24 PTAGE: 66 years EKG: Probable Sinus rhythm Significant baseline artifact precluding further interpretation Consider repeat EKGS ABNORMAL ECG PREVIOUS TRACING : 04/18/2017 00.30 DOCTOR: Glenys Mas Interpretating Date/Time 04/18/2017 17:25:17
--- NOTE | 2017-04-18 17:26 | EKG ---
Date Performed: 04/18/2017 Time Performed: 00:30:55 PTAGE: 66 years EKG: Sinus rhythm POSSIBLE INFERIOR MYOCARDIAL INFARCTION Compared to prior tracing no significant change ABNORMAL ECG PREVIOUS TRACING : 09/27/2016 10.30 DOCTOR: Glenys Mas Interpretating Date/Time 04/18/2017 17:24:29
[2017-04-19] VITALS (8 sets, daily range): BP systolic 107–140; BP diastolic 66; PULSE 47–70; RESP 16–18; TEMP 98–98.5; O2SAT 93–100
[2017-04-19] MEDS: clonazePAM 1 MG TAB PO PRN ×2 (01:33→11:25)
[2017-04-19] MEDS: SUCRALFATE 1 GM/10 ML CUP PO SCH ×2 (06:06→11:17)
[2017-04-19] MEDS: SIMETHICONE 125 MG CHEWABLE TAB PO SCH (06:06)
[2017-04-19] MEDS: MORPHINE SULFATE 4 MG/ML INJ IV PRN (06:11)
[2017-04-19 08:30] LABS: HEMATOCRIT 44.3 % (39.0-51.0); MEAN CELL VOLUME 102.1 FL (80.0-100.0); MEAN CORPUSCULAR HGB CONC 33.4 % (32.0-36.0); PLATELET COUNT 99 TH/MM3 (150-450); RED BLOOD COUNT 4.34 MIL/MM3 (4.50-5.90); RED CELL DISTRIBUTION WIDTH 13.6 % (11.6-17.2)
[2017-04-19] MEDS ORDERED: SUCR1S PO (08:31)
--- NOTE | 2017-04-19 08:31 | HHI.DCPOC ---
Discharge Care Plan Diagnosis: (1) GERD (gastroesophageal reflux disease) Your Health Problems Are: Chest Pain Goals to Promote Your Health * To prevent worsening of your condition and complications * To maintain your health at the optimal level Directions to Meet Your Goals Take your medications as prescribed Follow your dietary instruction Follow activity as directed Keep your appointments as scheduled Take your immunizations and boosters as scheduled If your symptoms worsen call your PCP, if no PCP go to Urgent Care Center or Emergency Room Smoking is Dangerous to Your Health. Avoid second hand smoke Call the 24-hour hour crisis hotline for domestic abuse at [facility]. RIKY Apr 19, 2017 08:31
[2017-04-19 08:36] LABS: HEMO FLAGS AUTO DIFF
--- NOTE | 2017-04-19 08:38 | HHI.PR ---
Subjective Subjective Remarks minimal epigastric pain tolerating diet well no n/v no diarrhea no cp no sob no fever at bsd Review of Systems Constitutional Constitutional Remarks 12 point ros completed, negative except as noted above Vitals/Results Vital Signs Vital Signs Date Time Temp Pulse Resp B/P (MAP) Pulse Ox O2 Delivery O2 Flow Rate FiO2 04/19/17 08:08 98.0 58 16 140/66 (90) 100 04/19/17 07:38 97 Nasal Cannula 2.00 04/19/17 06:16 12 04/19/17 04:04 47 04/19/17 00:29 97 21 04/19/17 00:04 70 04/18/17 23:53 98.1 56 18 129/62 (84) 98 04/18/17 20:43 98.4 70 19 130/70 (90) 98 04/18/17 20:01 49 04/18/17 15:58 98.7 66 20 131/60 (83) 98 04/18/17 14:05 71 100/66 (77) 04/18/17 13:03 98.0 62 20 98/57 (71) 98 04/18/17 12:15 65 20 109/67 (81) 95 04/18/17 12:00 98.8 71 20 113/69 (84) 98 04/18/17 08:40 95 21 CBC/BMP: 04/18/17 0055 04/18/17 0055 Lab Results Laboratory Tests Test 04/18/17 14:09 04/19/17 08:00 Troponin I LESS THAN 0.02 NG/ML Gastrin 169 pg/mL Physical Exam General General Appearance: Well Developed, Well Nourished, No Acute Distress, Comfortable Eyes Eye Exam: Pupils Equal, Pupils Reactive Ears & Nose Ears & Nose Exam: Nasal Mucosa [place] Throat Throat Exam: Oral Mucosa [place] & Moist Neck Neck Exam: Neck Supple, Trachea Midline Pulmonary Resp Exam: Clear Bilaterally, No Distress Cardiology CV Exam: Regular, Good Perfusion Gastrointestinal/Abdomen GI Exam: Soft, Non-Tender, Bowel Sounds Present, Non-Distended Musculoskeletal MS Exam: Joints Intact Integumentary Skin Exam: Warm, Dry Extremeties Extremities Exam: No Edema, Pedal Pulses Palpable Neurologic Neuro Exam: Alert, Awake, Oriented, Speech Clear, Moving All Extremities, No Focal Deficits Psychiatric Psych Exam: Appropriate Responses VTE Prophylaxis VTE Prophylaxis Device: SCDs PUD Prophylasis PUD Prophylaxis: Protonix Assessment/Plan Assessment/Plan IMPRESSION 1. Abdominal pain. 2. Chest pain. 3. Cirrhosis. 4. Hemochromatosis. 5. Hypertension. 6. Hyperbilirubinemia. 7. Chronic back pain. 8. Acid reflux. PLAN: ruled out [place] source of pain likely gastric ulcers appreciate GI input S/P EGD 04/18-gastric and duodenal ulcers gastrin level elevated continue PPI and Carafate continue home meds pain management SCDS for dvt prophylaxis PPI for GI prophylaxis tolerating diet well no n/v plan to dc home today after GI clears f/u GI 2 weeks Diet-heart healthy avoid NSAIDS Activity as tolerated d/w RN d/w Dr. Napoles d/w pt and this pt. was seen by myself and Dr. Napoles, this note is written on his behalf Discharge Minutes: 40 Mary Beth Dominique Apr 19, 2017 08:38
[2017-04-19 08:50] LABS: ALT (GPT) 70 U/L (12-78); ANION GAP 8 MEQ/L (5-15); AST (GOT) 75 U/L (15-37); BICARBONATE 29.1 MEQ/L (21.0-32.0); BLOOD UREA NITROGEN 14 MG/DL (7-18); CHLORIDE 103 MEQ/L (98-107); GLOMERULAR FILTRATION RATE 75 ML/MIN (>89); POTASSIUM 3.5 MEQ/L (3.5-5.1); SODIUM (NA) 140 MEQ/L (136-145)
[2017-04-19 08:55] LABS: ALKALINE PHOSPHATASE 102 U/L (45-117); TOTAL BILIRUBIN ADULT 4.3 MG/DL (0.2-1.0)
[2017-04-19 10:01] LABS: BANDS 1 % (0-6); EOSINOPHILS 1 % (0-4); NEUTROPHIL # MANUAL DIFF 2.7 TH/MM3 (1.8-7.7); POLYS (SEG NEUTROPHILS) 44 % (16-70); WBC DIFF SAMPLE 100
[2017-04-19 10:06] LABS: PLATELET ESTIMATE SMEAR LOW (NORMAL); PLATELET MORPHOLOGY NORMAL (NORMAL); SCAN/DIFF FINAL DIFF MANUAL
[2017-04-19] MEDS: PANTOPRAZOLE SODIUM 40 MG VIAL IV PUSH SCH (10:10)
[2017-04-19] MEDS: ASPIRIN 325 MG TAB PO SCH (10:10)
[2017-04-19] MEDS: HEPARIN SODIUM - SQ 10,000 UNITS/ML VIAL SQ SCH (10:11)
[2017-04-19] MEDS: SODIUM CHLORIDE 0.9% FLUSH 10 ML FLUSH IV FLUSH SCH (10:11)
--- NOTE | 2017-04-19 10:38 | HHI.GIFU ---
Subjective Remarks Resting in bed. Feeling much better. Tolerating diet. Back hurts from laying in bed. (Jerri Arnold) Objective Vitals I&O Vital Signs Date Time Temp Pulse Resp B/P (MAP) Pulse Ox O2 Delivery O2 Flow Rate FiO2 04/19/17 08:08 98.0 58 16 140/66 (90) 100 04/19/17 07:38 97 Nasal Cannula 2.00 04/19/17 06:16 12 04/19/17 04:04 47 04/19/17 00:29 97 21 04/19/17 00:04 70 04/18/17 23:53 98.1 56 18 129/62 (84) 98 04/18/17 20:43 98.4 70 19 130/70 (90) 98 04/18/17 20:01 49 04/18/17 15:58 98.7 66 20 131/60 (83) 98 04/18/17 14:05 71 100/66 (77) 04/18/17 13:03 98.0 62 20 98/57 (71) 98 04/18/17 12:15 65 20 109/67 (81) 95 04/18/17 12:00 98.8 71 20 113/69 (84) 98 I/O 04/18/17 04/18/17 04/18/17 04/19/17 04/19/17 04/19/17 07:00 15:00 23:00 07:00 15:00 23:00 Intake Total 0 ml Balance 0 ml Intake Oral 0 ml IV Total 0 ml # Voids 0 Laboratory Laboratory Tests Test 04/18/17 14:09 04/19/17 08:00 Troponin I LESS THAN 0.02 Gastrin 169 White Blood Count 6.0 Red Blood Count 4.34 Hemoglobin 14.8 Hematocrit 44.3 Mean Corpuscular Volume 102.1 Mean Corpuscular Hemoglobin 34.0 Mean Corpuscular Hemoglobin Concent 33.4 Red Cell Distribution Width 13.6 Platelet Count 99 Mean Platelet Volume 10.6 Differential Total Cells Counted 100 Neutrophils % (Manual) 44 Band Neutrophils % 1 Lymphocytes % 53 Monocytes % 1 Eosinophils % 1 Neutrophils # (Manual) 2.7 Differential Comment FINAL DIFF MANUAL Platelet Estimate LOW Platelet Morphology Comment NORMAL Blood Urea Nitrogen 14 Creatinine 1.00 Random Glucose 99 Total Protein 6.3 Albumin 3.1 Calcium Level 8.7 Alkaline Phosphatase 102 Aspartate Amino Transf (AST/SGOT) 75 Alanine Aminotransferase (ALT/SGPT) 70 Total Bilirubin 4.3 Sodium Level 140 Potassium Level 3.5 Chloride Level 103 Carbon Dioxide Level 29.1 Anion Gap 8 Estimat Glomerular Filtration Rate 75 Imaging Last Impressions Abdomen/Pelvis CT 04/18/17 0050 Signed Impressions: Service Date/Time: Tuesday, April 18, 2017 01:58 - CONCLUSION: 1. No acute abnormality is identified within the abdomen or pelvis. Examination quality degraded by respiratory motion artifact. 2. Cirrhosis with findings indicative of portal hypertension including splenomegaly and paraesophageal varices. The bilateral gynecomastia is also related to the chronic liver disease. 3. Nonacute findings include moderate atherosclerotic disease and 2 nonobstructing right renal stones. Jose Blue MD Shoulder X-Ray 04/18/17 0000 Signed Impressions: Service Date/Time: Tuesday, April 18, 2017 01:09 - CONCLUSION: No acute left shoulder abnormality is identified on this two-view examination. There is osteoarthritis at the acromioclavicular joint. Jose Blue MD Chest X-Ray 04/18/17 0000 Signed Impressions: Service Date/Time: Tuesday, April 18, 2017 01:05 - CONCLUSION: No acute cardiopulmonary abnormalities identified. Jose Blue MD Physical Exam HEENT: Normocephalic; atraumatic; no jaundice. CARDIAC: RRR PULM: CTA ABDOMEN: Soft, nondistended, nontender; no hepatosplenomegaly; bowel sounds are present in all four quadrants. EXTREMITIES: No clubbing, cyanosis, or edema. SKIN: Normal; no rash; no jaundice. INJECTION PRESS OPERATOR: No focal deficits; alert and oriented times three. (Jerri Arnold) Assessment and Plan Plan ASSESSMENT: - Abdominal pain, N/V. 4-5 day history of burning epigastric pain radiating to chest/RUQ with associated heartburn, bloating, dry heaving. Hospitalized for the same last year, S/P EGD (02/17/16)----> small esophageal varices in the middle third of the esophagus, there was erythematous gastritis in the gastric antrum; multiple biopsies were performed, normal duodenal mucosa in the bulb and second portion of the duodenum, retroflexion was performed and was normal. Pathology revealed reactive/chemical gastropathy in a background of mild chronic gastritis, negative for helicobacter pylori. He then had a colonoscopy (02/18/16) which revealed adenomatous polyps transverse/sigmoid colon. CT Scan abdomen and pelvis (04/18/17)----> No acute abnormality is identified within the abdomen or pelvis. Examination quality degraded by respiratory motion artifact. Cirrhosis with findings indicative of portal hypertension including splenomegaly and paraesophageal varices. The bilateral gynecomastia is also related to chronic liver disease. Nonacute findings include moderate atherosclerotic disease and 2 nonobstructing right renal stones. HH Stable. S/P EGD (04/18/17)---> 1. The esophagus was otherwise normal 2. Multiple small ulcers were found in the entire examined stomach; biopsies were taken 3. Multiple medium sized ulcers were found in the 2nd part of the duodenum; biopsies were taken 4. Retroflexed views revealed an ulcers. Pathology pending. Gastrin 169. PPI, Carafate. IMPROVED. Tolerating diet. - Multiple gastric/duodenal ulcers. Pathology pending. Gastrin 169. PPI, Carafate. - Elevated LFTs with liver cirrhosis with hx of hemochromatosis. Dx 2013. Denies ever having treatment for hemochromatosis. CT as above. Does not drink ETOH. T. Bili 4.3, AST 75, ALT 70, ALk Phosph 102. Iron 264 , TIBC 295, Iron saturation 89.4, Ferritin 349. - Esophageal varices. No active GI bleeding. - Hx hemochromatosis. Will get Iron studies. - Chest pain, seems to be more GI related- epigastric burning radiating to RUQ and chest- no sob/difficulty breathing. Trop negative x 2, due for 3rd set. Per attending. - GERD. PPI - HTN, Anxiety/Depression, Chronic back pain per attending. PLAN: - TR - Await pathology - Cont. Protonix with bid dosing - Cont. Carafate - Will need repeat Gastrin level as outpatient - Will need repeat EGD in 4-6 weeks - Will need outpatient followup for his hemochromatosis/elevated LFTs - FU JAY JAY 2 weeks - PT seen and examined by Dr. Oliva and myself and this note is written on his behalf (Jerri Arnold) Physician Comments Agree with the assessment and plan as above, will follow up with you. (Marjorie Oliva MD) Jerri Arnold Apr 19, 2017 10:38 Marjorie Oliva MD Apr 19, 2017 11:57
[2017-04-19] MEDS ORDERED: PROT40TA PO (11:46)
--- NOTE | 2017-04-19 18:47 | HHI.DS ---
Discharge Summary Admission Date Apr 18, 2017 at 02:59 Discharge Date: Apr 19, 2017 Admitting Diagnosis Chest pain (1) Chest pain ICD Codes: R07.9 - Chest pain, unspecified Status: Acute (2) Abdominal pain ICD Codes: R10.9 - Unspecified abdominal pain Status: Acute (3) GERD (gastroesophageal reflux disease) ICD Codes: K21.9 - Gastro-esophageal reflux disease without esophagitis Status: Chronic (4) HTN (hypertension) ICD Codes: I10 - Essential (primary) hypertension Status: Chronic (5) Liver cirrhosis ICD Codes: K74.60 - Liver cirrhosis Status: Chronic Procedures S/P EGD 04/18-gastric and duodenal ulcers CBC/BMP: 04/19/17 0800 04/19/17 0800 Significant Findings Laboratory Tests Test 04/18/17 00:55 04/18/17 03:00 04/18/17 04:10 04/18/17 14:09 Platelet Count 104 TH/MM3 (150-450) Monocytes (%) (Auto) 9.6 % (0.0-8.0) Prothrombin Time 13.1 SEC (9.8-11.6) Random Glucose 134 MG/DL (74-106) Aspartate Amino Transf (AST/SGOT) 66 U/L (15-37) Total Bilirubin 5.4 MG/DL (0.2-1.0) Potassium Level 3.3 MEQ/L (3.5-5.1) Estimat Glomerular Filtration Rate 77 ML/MIN (>89) Troponin I LESS THAN 0.02 NG/ML LESS THAN 0.02 NG/ML LESS THAN 0.02 NG/ML Urine Specific [place] 1.038 (1.002-1.035) Urine Urobilinogen 8.0 MG/DL (LESS THAN Iron Level 264 MCG/DL (65-175) Percent Iron Saturation 89.4 % (20-50) Gastrin 169 pg/mL Test 04/19/17 08:00 Red Blood Count 4.34 MIL/MM3 (4.50-5.90) Mean Corpuscular Volume 102.1 FL (80.0-100.0) Platelet Count 99 TH/MM3 (150-450) Lymphocytes % 53 % (9-44) Platelet Estimate LOW (NORMAL) Total Protein 6.3 GM/DL (6.4-8.2) Albumin 3.1 GM/DL (3.4-5.0) Aspartate Amino Transf (AST/SGOT) 75 U/L (15-37) Total Bilirubin 4.3 MG/DL (0.2-1.0) Estimat Glomerular Filtration Rate 75 ML/MIN (>89) Imaging Last Impressions Abdomen/Pelvis CT 04/18/17 0050 Signed Impressions: Service Date/Time: Tuesday, April 18, 2017 01:58 - CONCLUSION: 1. No acute abnormality is identified within the abdomen or pelvis. Examination quality degraded by respiratory motion artifact. 2. Cirrhosis with findings indicative of portal hypertension including splenomegaly and paraesophageal varices. The bilateral gynecomastia is also related to the chronic liver disease. 3. Nonacute findings include moderate atherosclerotic disease and 2 nonobstructing right renal stones. Jose Blue MD Shoulder X-Ray 04/18/17 0000 Signed Impressions: Service Date/Time: Tuesday, April 18, 2017 01:09 - CONCLUSION: No acute left shoulder abnormality is identified on this two-view examination. There is osteoarthritis at the acromioclavicular joint. Jose Blue MD Chest X-Ray 04/18/17 0000 Signed Impressions: Service Date/Time: Tuesday, April 18, 2017 01:05 - CONCLUSION: No acute cardiopulmonary abnormalities identified. Jose Blue MD Hospital Course This is a pleasant 66-year-old male who states he has been having abdominal pain for about four days, progressively worsening. It is mainly in the upper abdomen. He described it as a burning pain that has been on and off, however, over the past day or so it has become more constant, is very severe. He does have a little bit of chest discomfort as well which is a little different than the burning pain. It is in his lower chest, does not radiate, is described as a dull pain, lasts for 5-10 minutes and resolves on its own. He has had nausea and dry heaves, not actually vomiting. His appetite has been poor. He has not had fever or chills. He has had some loose stool; he took some Imodium and now his last bowel movement was very small amount yesterday. He has had very poor sleep because of the abdominal pain, not because of the chest pain. The pain was actually relieved a little bit by laying on his side and pushing a pillow to his abdomen. However, he has a bad back and he cannot stay in that position. His blood pressure was also noted to be very high, like 200/118 and his convinced him to come to the hospital and to have further workup because of this. Patient was evaluated in emergency room. INVESTIGATIONS Sodium 138, potassium 3.3, glucose 134, bilirubin 5.4, AST 66, ALT 61. Troponin I less than 0.02. Lipase is 112. INR is 1.2. White count is 8.9, hemoglobin 16.7, platelets 104. Urinalysis shows specific gravity of 1.038. Urobilinogen is at 8. Culture is not indicated. EKG Sinus rhythm with rate 93 beats/minute. T-waves in the inferior leads of indeterminate age. RADIOLOGY DATA Shoulder x-ray - No acute left shoulder abnormality. Chest x-ray negative. CT of the abdomen and pelvis shows no acute abnormality. Examination quality is degraded by respiratory motion. Cirrhosis with findings indicative of portal hypertension, splenomegaly and paraesophageal varices, bilateral gynecomastia, moderate atherosclerotic disease and two nonobstructing right renal stones. Patient was admitted with: 1. Abdominal pain. 2. Chest pain. 3. Cirrhosis. 4. Hemochromatosis. 5. Hypertension. 6. Hyperbilirubinemia. 7. Chronic back pain. 8. Acid reflux. During the course of the hospitalization the following took place: The patient is placed on observation , repeated serial cardiac enzymes x 3, repeated EKG. He received aspirin. ACS ruled out. Pain appeared to be more GI in nature. Patient started on a PPI. GI was consulted. GI evaluated, recommendations pain.S/P EGD 04/18-gastric and duodenal ulcers gastrin level elevated. Symptoms improved GI cleared for discharge. They recommended to continue PPI and Carafate. Recommended repeat gastrin level as outpatient, repeat EGD in 4-6 weeks, and follow-up for hemochromatosis and elevated LFTs. He was continue home meds including pain management Was put on appropriate SCDS for dvt prophylaxis and PPI for GI prophylaxis Patient tolerated diet well no n/v Gastroenterology cleared for discharge Pt Condition on Discharge: Stable Discharge Disposition: Discharge Home Discharge Instructions DIET: Follow Instructions for: Heart Healthy Diet Additional Diet Instructions: avoid Aspirin/Advil/Ibuprofen/aleve etc Fluid Restrictions: none Activities you can perform: Full Weight Bearing Follow up Referrals: Gastroenterology - 2 Weeks with Marjorie Oliva MD PCP Follow-up - 1 Week New Medications: Pantoprazole (Protonix) 40 Mg Tab 40 MG PO BID for Ulcer Prevention, #60 TAB 0 Refills Sucralfate Liq (Sucralfate Liq) 1 Gram/10 Ml Mayte 1 GM PO ACHS for GERD, #90 CONTAINER 1 Refill Continued Medications: Amlodipine (Amlodipine) 5 Mg Tab 5 MG PO DAILY for Blood Pressure Management, #0 TAB 0 Refills Clonazepam (Klonopin) 2 Mg Tab 2 MG PO TID, #0 TAB 0 Refills Furosemide (Lasix) 40 Mg Tab 40 MG PO DAILY, #0 TAB 0 Refills Gabapentin (Neurontin) 300 Mg Cap 300 MG PO BID, #60 CAP 0 Refills Lisinopril (Lisinopril) 40 Mg Tab 40 MG PO DAILY for Blood Pressure Management, #0 TAB 0 Refills Oxycodone (Oxycodone) 5 Mg Tab 5 MG PO Q8H PRN for PAIN, #7 TAB 0 Refills Spironolactone (Spironolactone) 50 Mg Tab Unknown Dose PO DAILY, #0 TAB 0 Refills Tamsulosin (Tamsulosin) 0.4 Mg Cap 0.4 MG PO HS for Manage Prostate Problems, #30 CAP 0 Refills Mary Beth Dominique Apr 19, 2017 18:47
== END 2017-04-19 14:46 | disposition home or self-care (01) ==
LOC: NEPC 23:51 → NEDA 04-18 02:59 → NEPFCDU 04-18 04:35
PROVIDERS: ADMIT Specialist; ATTEND Specialist
DX: K26.9 Duodenal ulcer, unspecified as acute or chronic, without hemorrhage or perforation (principal); K25.9 Gastric ulcer, unspecified as acute or chronic, without hemorrhage or perforation; K21.9 Gastro-esophageal reflux disease without esophagitis; R07.9 Chest pain, unspecified; K74.60 Unspecified cirrhosis of liver; I10 Essential (primary) hypertension; G89.29 Other chronic pain; M54.9 Dorsalgia, unspecified
CPT/HCPCS: 00740; 43239; 71010; 73030; 74177; 80053; 81001; 82728; 82941; 83540; 83550; 83690; 84484; 85007; 85025; 85027; 85610; 85730; 88305; 93005; 96372; 96374; 96375; 96376; 99285; C9113; G0378; J1644; J2060; J2270; J2405; Q9967; 88307